=== PATIENT | female | born 1995 | race African-American/Black ===

== ENCOUNTER 2019-02-16 09:24 | Emergency (ER) | payer OTHER ==
[~2019-02-16] VITALS: Ht 172.7 cm; Wt 80.0 kg
[2019-02-16] MEDS ORDERED: ACETAMINOPHEN 325MG TABLET PO STA (10:26)
[2019-02-16] MEDS ORDERED: SODIUM CHLORIDE 0.9% 1,000 ML IV ONE (10:26)
[2019-02-16 11:04] LABS: BASOPHILS % 0.7 % (0.0-2.0); EOSINOPHILS % 1.5 % (0.0-5.0); HEMATOCRIT. 33.7 % (36.0-48.0); HEMOGLOBIN. 11.4 g/dL (12.0-16.0); LYMPHOCYTES % 18.5 % (20.0-50.0); MEAN CORPUSCULAR HEMOGLOBIN 30.9 pg (28.0-32.0); MEAN CORPUSCULAR VOLUME 91.8 fL (81.0-99.0); MEAN PLATELET VOLUME 7.5 fl (7.4-10.4); MONOCYTES % 4.2 % (2.0-8.0); NEUTROPHILS % 75.1 % (40.0-76.0); PLATELET 256 x1000/uL (130-400); RED BLOOD CELL COUNT 3.68 mill/uL (4.2-5.4); RED CELL DISTRIBUTION WIDTH 13.6 % (11.6-14.6)
[2019-02-16 11:12] LABS: CHLORIDE 105 mEq/L (98-107)
[2019-02-16 11:38] LABS: B-HCG QUANTITATIVE 18918 mIU/mL (<3)
[2019-02-16 13:30] LABS: CLARITY URINE CLEAR (CLEAR); COLOR URINE YELLOW (YELLOW); KETONES URINE NEGATIVE (NEGATIVE); LEUKOCYTE ESTERASE URINE NEGATIVE (NEGATIVE); NITRITE URINE NEGATIVE (NEGATIVE); OCCULT BLOOD URINE NEGATIVE (NEGATIVE); PROTEIN URINE NEGATIVE (NEGATIVE); SPECIFIC GRAVITY URINE 1.012 (1.005-1.030); UROBILINOGEN URINE 0.2 E.U./dL (0.2-1.0)
[2019-02-16 14:01] VITALS: BP 125/69
== END 2019-02-16 14:28 | disposition home or self-care (01) ==
LOC: EDBD 09:24 → ER 09:24
DX: O26.892 Other specified pregnancy related conditions, second trimester (principal); J45.909 Unspecified asthma, uncomplicated; R10.30 Lower abdominal pain, unspecified; Z3A.16 16 weeks gestation of pregnancy
CPT/HCPCS: 36415; 76805; 80053; 81003; 81025; 84702; 85025; 86850; 86900; 86901; 99284; J7030

== ENCOUNTER 2019-05-31 14:54 | Observation (INO) | payer OTHER ==
[~2019-05-31] VITALS: Ht 172.7 cm; Wt 99.0 kg
[2019-05-31] MEDS ORDERED: ACETAMINOPHEN 325MG TABLET PO ONE (15:45)
[2019-05-31] MEDS ORDERED: LABETALOL HCL 100MG TABLET PO ONE (15:45)
[2019-05-31 16:06] LABS: BASOPHILS % 0.3 % (0.0-2.0); EOSINOPHILS % 1.5 % (0.0-5.0); HEMATOCRIT. 35.9 % (36.0-48.0); HEMOGLOBIN. 12.2 g/dL (12.0-16.0); LYMPHOCYTES % 19.8 % (20.0-50.0); MEAN CORPUSCULAR HEMOGLOBIN 30.5 pg (28.0-32.0); MEAN CORPUSCULAR VOLUME 90.1 fL (81.0-99.0); MEAN PLATELET VOLUME 7.9 fl (7.4-10.4); MONOCYTES % 5.7 % (2.0-8.0); NEUTROPHILS % 72.7 % (40.0-76.0); PLATELET 272 x1000/uL (130-400); RED BLOOD CELL COUNT 3.99 mill/uL (4.2-5.4); RED CELL DISTRIBUTION WIDTH 12.9 % (11.6-14.6)
[2019-05-31 16:08] LABS: INR 0.9; PROTHROMBIN TIME 9.1 sec (9.6-11.0)
[2019-05-31 16:10] LABS: CLARITY URINE CLEAR (CLEAR); COLOR URINE YELLOW (YELLOW); KETONES URINE NEGATIVE (NEGATIVE); LEUKOCYTE ESTERASE URINE NEGATIVE (NEGATIVE); NITRITE URINE NEGATIVE (NEGATIVE); OCCULT BLOOD URINE NEGATIVE (NEGATIVE); PH URINE 5.5 (4.5-8.0); PROTEIN URINE NEGATIVE (NEGATIVE); SPECIFIC GRAVITY URINE 1.013 (1.005-1.030); UROBILINOGEN URINE 0.2 E.U./dL (0.2-1.0)
[2019-05-31 17:03] LABS: CHLORIDE 107 mEq/L (98-107)
[2019-05-31 17:27] LABS: B-HCG QUANTITATIVE 13446 mIU/mL (<3)
[2019-05-31 18:05] VITALS: BP 115/62
[2019-05-31] MEDS ORDERED: PNV1TABL50 PO (21:09)
== END 2019-05-31 21:15 | disposition home or self-care (01) ==
LOC: ER 14:54 → 8 EST LDRP 18:55
PROVIDERS: ADMIT Obstetrics & Gynecology; ATTEND Obstetrics & Gynecology
DX: O13.3 Gestational [pregnancy-induced] hypertension without significant proteinuria, third trimester (principal); O99.513 Diseases of the respiratory system complicating pregnancy, third trimester; J45.909 Unspecified asthma, uncomplicated; O26.893 Other specified pregnancy related conditions, third trimester; R51 Headache; Z3A.31 31 weeks gestation of pregnancy
CPT/HCPCS: 36415; 76805; 76815; 76818; 80053; 81003; 84550; 84702; 85025; 85384; 85610; 86850; 86900; 86901; 99281; G0378; 99284

== ENCOUNTER 2019-08-01 12:23 | Inpatient (IN) | payer OTHER ==
[~2019-08-01] VITALS: Ht 172.7 cm; Wt 109.3 kg
[~2019-08-01 12:23] MED LIST: PNV1TABL50 PO
[2019-08-01 14:04] LABS: BASOPHILS % 0.5 % (0.0-2.0); EOSINOPHILS % 1.2 % (0.0-5.0); HEMATOCRIT. 38.4 % (36.0-48.0); HEMOGLOBIN. 13.2 g/dL (12.0-16.0); LYMPHOCYTES % 19.9 % (20.0-50.0); MEAN CORPUSCULAR HEMOGLOBIN 31.5 pg (28.0-32.0); MEAN CORPUSCULAR VOLUME 91.7 fL (81.0-99.0); MEAN PLATELET VOLUME 9.3 fl (7.4-10.4); MONOCYTES % 5.5 % (2.0-8.0); NEUTROPHILS % 72.9 % (40.0-76.0); PLATELET 256 x1000/uL (130-400); RED BLOOD CELL COUNT 4.19 mill/uL (4.2-5.4); RED CELL DISTRIBUTION WIDTH 14.3 % (11.6-14.6)
[2019-08-01 14:05] LABS: CLARITY URINE CLEAR (CLEAR); COLOR URINE YELLOW (YELLOW); KETONES URINE NEGATIVE (NEGATIVE); LEUKOCYTE ESTERASE URINE NEGATIVE (NEGATIVE); NITRITE URINE NEGATIVE (NEGATIVE); OCCULT BLOOD URINE NEGATIVE (NEGATIVE); PH URINE 5.5 (4.5-8.0); PROTEIN URINE TRACE (NEGATIVE); SPECIFIC GRAVITY URINE 1.012 (1.005-1.030); UROBILINOGEN URINE 0.2 E.U./dL (0.2-1.0)
[2019-08-01 14:13] LABS: CHLORIDE 108 mEq/L (98-107)
[2019-08-01 14:40] LABS: D-DIMER 1.21 mg/L FEU (<0.50); INR 0.9; PARTIAL THROMBOPLASTIN TIME 25.5 sec (23.4-31.0); PROTHROMBIN TIME 9.2 sec (9.6-11.0)
[2019-08-01] MEDS ORDERED: LACTATED RINGERS 1,000 ML IV SCH (15:37)
[2019-08-01] MEDS ORDERED: BUTORPHANOL TARTRATE 2 MG/ML VIAL IV PRN (15:45)
[2019-08-01] MEDS ORDERED: METHYLERGONOVINE MALEATE 0.2 MG/ML IM PRN (15:45)
[2019-08-01] MEDS ORDERED: LIDOCAINE HCL 1% 20ML VIAL (Pyxis) INJ INFIL PRN (15:45)
[2019-08-01] MEDS ORDERED: NALOXONE HCL 0.4 MG/ML 1ML VIAL IM PRN (15:45)
[2019-08-01] MEDS ORDERED: DEXT 5%/LR + PITOCIN 20UNITS/L 1,000 ML IV PRN (15:45)
[2019-08-01] MEDS ORDERED: MISOPROSTOL 100MCG TABLET VG PRN ×2 (15:45)
[2019-08-01] MEDS ORDERED: LABETALOL HCL 5MG/ML VIAL 20ML IV PRN ×4 (16:45→18:00)
[2019-08-01] MEDS ORDERED: HYDRALAZINE 20MG/ML VIAL IV PRN (16:45)
[2019-08-01] MEDS ORDERED: DINOPROSTONE 10MG VAGINAL INSERT VG NR (18:00)
[2019-08-01 19:12] LABS: *AMPHETAMINES SCREEN URINE NEGATIVE (NEGATIVE); *BARBITURATES SCREEN URINE NEGATIVE (NEGATIVE); *BENZODIAZEPINES SCREEN URINE NEGATIVE (NEGATIVE); *COCAINE SCREEN URINE NEGATIVE (NEGATIVE); METHADONE URINE SCREEN NEGATIVE (NEGATIVE)
[2019-08-01 19:13] LABS: CANNABINOID URINE SCREEN NEGATIVE (NEGATIVE); OPIATES URINE SCREEN NEGATIVE (NEGATIVE); PHENCYCLIDINE URINE SCREEN NEGATIVE (NEGATIVE)
[2019-08-01 19:43] LABS: HEPATITIS B SURFACE ANTIGEN NEGATIVE
[2019-08-02] MEDS ORDERED: CITRIC ACID/SODIUM CITRATE SOLN 30ML UDC PO SCH (01:30)
[2019-08-02] MEDS ORDERED: FENTANYL CITRATE/PF 50MCG/ML 2ML VIAL ONE (01:45)
[2019-08-02] MEDS ORDERED: MORPHINE SULFATE/PF 1MG/ML 10ML AMP ONE (01:45)
[2019-08-02] MEDS ORDERED: PHENYLEPHRINE HCL 10 MG/ML 1ML (IV VIAL) IV ONE (01:46)
[2019-08-02] MEDS ORDERED: ONDANSETRON HCL 4MG/2ML INJ ONE (01:46)
[2019-08-02] MEDS ORDERED: METOCLOPRAMIDE HCL 10MG/2ML VIAL ONE (01:46)
[2019-08-02] MEDS ORDERED: OXYTOCIN 10 UNITS/ML 1ML ONE ×2 (01:46→03:00)
[2019-08-02] MEDS ORDERED: EPHEDRINE SULFATE 50MG/ML VIAL ONE (01:46)
[2019-08-02] MEDS ORDERED: CEFAZOLIN SODIUM 1000MG/VIAL ONE (01:46)
[2019-08-02] MEDS ORDERED: GLYCOPYRROLATE 0.2 MG/ML 2ML VIAL ONE (01:46)
[2019-08-02] MEDS ORDERED: SODIUM CHLORIDE 0.9% 10ML VIAL ONE (01:48)
[2019-08-02 03:28] LABS: BG FRACTION INSPIRED OXYGEN 21; BG HCO3 ACT 20.5 mmol/L (22.0-26.0); BG PCO2 53.9 mmHg (35.0-45.0); BG PH 7.198 (7.350-7.450); BG PO2 < 30.3 mmHg (75.0-100.0); BG SAMPLE SITE CORD; BG VENT MODE ROOM AIR
[2019-08-02 03:29] LABS: BG BASE EXCESS -5.7 mmol/L (-2.0-2.0); BG FRACTION INSPIRED OXYGEN 21; BG HCO3 ACT 25.7 mmol/L (22.0-26.0); BG PCO2 80.3 mmHg (35.0-45.0); BG PH 7.123 (7.350-7.450); BG SAMPLE SITE CORD; BG VENT MODE ROOM AIR
[2019-08-02] MEDS ORDERED: DIPHENHYDRAMINE 25MG CAPSULE PO PRN (03:30)
[2019-08-02] MEDS ORDERED: ONDANSETRON HCL 4MG/2ML INJ IV PRN (03:30)
[2019-08-02] MEDS ORDERED: IBUPROFEN 400MG TABLET PO PRN (03:30)
[2019-08-02] MEDS ORDERED: BISACODYL 10MG SUPP PR PRN (03:30)
[2019-08-02] MEDS ORDERED: KETOROLAC 30MG/ML VIAL IV PRN (03:30)
[2019-08-02] MEDS ORDERED: HYDROCODONE/ACETAMINOPHEN 5/325MG TABLET PO PRN (03:30)
[2019-08-02] MEDS ORDERED: LANOLIN OINT 7GM TUBE TOP PRN (03:30)
[2019-08-02] MEDS ORDERED: BUTORPHANOL TARTRATE 2 MG/ML VIAL IV PRN (03:45)
[2019-08-02] MEDS ORDERED: DIPHENHYDRAMINE 50MG/ML VIAL IV PRN (03:45)
[2019-08-02] MEDS ORDERED: NALOXONE HCL 0.4 MG/ML 1ML VIAL IV PRN (03:45)
[2019-08-02] MEDS ORDERED: LABETALOL HCL 5MG/ML VIAL 20ML IV PRN ×3 (05:15)
[2019-08-02] MEDS: LABETALOL HCL 5MG/ML VIAL 20ML IV PRN ×2 (05:39→06:41)
[2019-08-02] MEDS ORDERED: TETANUS, DIPHTHERIA, PERTUSSIS VAC/PF 0.5ML (>7YR OLD) IM ONE (06:00)
[2019-08-02] MEDS: MAGNESIUM 20 G PREMIX (L & D) 500 ML IV SCH ×2 (07:40→17:55)
[2019-08-02] MEDS: DEXT 5%/LR + PITOCIN 20UNITS/L 1,000 ML IV SCH ×2 (08:04→22:27)
[2019-08-02 08:09] LABS: BASOPHILS % 0.2 % (0.0-2.0); EOSINOPHILS % 0.2 % (0.0-5.0); HEMATOCRIT. 38.3 % (36.0-48.0); LYMPHOCYTES % 9.9 % (20.0-50.0); MEAN CORPUSCULAR HEMOGLOBIN 31.2 pg (28.0-32.0); MEAN CORPUSCULAR VOLUME 91.9 fL (81.0-99.0); MEAN PLATELET VOLUME 8.8 fl (7.4-10.4); MONOCYTES % 5.3 % (2.0-8.0); NEUTROPHILS % 84.4 % (40.0-76.0); PLATELET 251 x1000/uL (130-400); RED BLOOD CELL COUNT 4.17 mill/uL (4.2-5.4); RED CELL DISTRIBUTION WIDTH 14.3 % (11.6-14.6)
[2019-08-02 08:10] LABS: CLARITY URINE CLEAR (CLEAR); COLOR URINE YELLOW (YELLOW); KETONES URINE NEGATIVE (NEGATIVE); LEUKOCYTE ESTERASE URINE NEGATIVE (NEGATIVE); NITRITE URINE NEGATIVE (NEGATIVE); OCCULT BLOOD URINE 2+ (NEGATIVE); PH URINE 6.5 (4.5-8.0); PROTEIN URINE 1+ (NEGATIVE); SPECIFIC GRAVITY URINE 1.019 (1.005-1.030); UROBILINOGEN URINE 0.2 E.U./dL (0.2-1.0)
[2019-08-02 08:16] LABS: CHLORIDE 107 mEq/L (98-107)
[2019-08-02 08:25] LABS: D-DIMER 3.14 mg/L FEU (<0.50); INR 0.9; PARTIAL THROMBOPLASTIN TIME 24.3 sec (23.4-31.0); PROTHROMBIN TIME 9.1 sec (9.6-11.0)
[2019-08-03] MEDS: MAGNESIUM 20 G PREMIX (L & D) 500 ML IV SCH (04:26)
[2019-08-03 07:10] LABS: BASOPHILS % 0.7 % (0.0-2.0); EOSINOPHILS % 1.4 % (0.0-5.0); HEMATOCRIT. 38.8 % (36.0-48.0); HEMOGLOBIN. 13.1 g/dL (12.0-16.0); LYMPHOCYTES % 14.5 % (20.0-50.0); MEAN CORPUSCULAR HEMOGLOBIN 30.9 pg (28.0-32.0); MEAN CORPUSCULAR VOLUME 91.5 fL (81.0-99.0); MEAN PLATELET VOLUME 8.7 fl (7.4-10.4); NEUTROPHILS % 77.4 % (40.0-76.0); PLATELET 245 x1000/uL (130-400); RED BLOOD CELL COUNT 4.23 mill/uL (4.2-5.4); RED CELL DISTRIBUTION WIDTH 14.6 % (11.6-14.6)
[2019-08-03 08:05] VITALS: BP 137/80
[2019-08-03] MEDS: SIMETHICONE 80MG TABLET CHEW PO SCH ×4 (08:59→20:33)
[2019-08-03] MEDS: PRENATAL VIT/FE FUMARATE/FA TABLET PO SCH (09:00)
[2019-08-03] MEDS: FERROUS SULFATE 325MG TABLET PO SCH ×3 (09:00→17:35)
[2019-08-03] MEDS: IBUPROFEN 800MG TABLET PO PRN ×2 (09:01→21:46)
[2019-08-03 15:45] VITALS: BP 119/80
[2019-08-03] MEDS: DOCUSATE SODIUM 100MG CAPSULE PO SCH (20:32)
[2019-08-03 22:00] VITALS: BP 132/71
[2019-08-04] VITALS (7 sets, daily range): BP systolic 129–153; BP diastolic 62–95
[2019-08-04 07:34] LABS: BASOPHILS % 0.5 % (0.0-2.0); EOSINOPHILS % 1.4 % (0.0-5.0); HEMATOCRIT. 33.7 % (36.0-48.0); HEMOGLOBIN. 11.3 g/dL (12.0-16.0); LYMPHOCYTES % 22.2 % (20.0-50.0); MEAN CORPUSCULAR HEMOGLOBIN 31.1 pg (28.0-32.0); MEAN CORPUSCULAR VOLUME 93.2 fL (81.0-99.0); MEAN PLATELET VOLUME 8.6 fl (7.4-10.4); MONOCYTES % 7.3 % (2.0-8.0); NEUTROPHILS % 68.6 % (40.0-76.0); PLATELET 213 x1000/uL (130-400); RED BLOOD CELL COUNT 3.62 mill/uL (4.2-5.4); RED CELL DISTRIBUTION WIDTH 14.1 % (11.6-14.6)
[2019-08-04] MEDS: FERROUS SULFATE 325MG TABLET PO SCH ×3 (08:15→17:55)
[2019-08-04] MEDS: SIMETHICONE 80MG TABLET CHEW PO SCH ×4 (08:15→20:35)
[2019-08-04] MEDS: PRENATAL VIT/FE FUMARATE/FA TABLET PO SCH (12:42)
[2019-08-04] MEDS: LABETALOL HCL 200MG TABLET PO SCH (17:56)
[2019-08-04] MEDS: DOCUSATE SODIUM 100MG CAPSULE PO SCH (20:35)
[2019-08-05 04:00] VITALS: BP 129/76
[2019-08-05 07:30] VITALS: BP 138/73
[2019-08-05 11:00] VITALS: BP 144/92
[2019-08-05] MEDS: FERROUS SULFATE 325MG TABLET PO SCH (11:01)
[2019-08-05] MEDS: SIMETHICONE 80MG TABLET CHEW PO SCH ×2 (11:01→21:23)
[2019-08-05] MEDS: PRENATAL VIT/FE FUMARATE/FA TABLET PO SCH (11:01)
[2019-08-05] MEDS: LABETALOL HCL 200MG TABLET PO SCH ×2 (11:02→22:55)
[2019-08-05] MEDS: IBUPROFEN 800MG TABLET PO PRN ×2 (11:07→15:14)
[2019-08-05 14:45] VITALS: BP 140/81
[2019-08-05 19:00] VITALS: BP 135/91
[2019-08-05] MEDS: DOCUSATE SODIUM 100MG CAPSULE PO SCH (21:24)
[2019-08-06 05:00] VITALS: BP 148/92
[2019-08-06 07:15] VITALS: BP 130/78
[2019-08-06] MEDS: PRENATAL VIT/FE FUMARATE/FA TABLET PO SCH (08:27)
[2019-08-06] MEDS: IBUPROFEN 800MG TABLET PO PRN (08:27)
[2019-08-06] MEDS: FERROUS SULFATE 325MG TABLET PO SCH (08:27)
== END 2019-08-06 10:55 | disposition home or self-care (01) | DRG 540 ==
LOC: OBSVTOIN 12:23 → 8 EST LDRP 12:23 → 8EST 08-03 08:10
PROVIDERS: ADMIT Obstetrics & Gynecology; ATTEND Obstetrics & Gynecology
PROC: 3E0P7VZ Introduction of Hormone into Female Reproductive, Via Natural or Artificial Opening (ICD-10-PCS; 2019-08-01)
PROC: 10D00Z1 Extraction of Products of Conception, Low, Open Approach (ICD-10-PCS; principal; 2019-08-02)
DX: O76 Abnormality in fetal heart rate and rhythm complicating labor and delivery (principal); O41.03X0 Oligohydramnios, third trimester, not applicable or unspecified; O99.03 Anemia complicating the puerperium; O32.2XX0 Maternal care for transverse and oblique lie, not applicable or unspecified; O98.52 Other viral diseases complicating childbirth; B06.9 Rubella without complication; O13.4 Gestational [pregnancy-induced] hypertension without significant proteinuria, complicating childbirth; Z37.0 Single live birth; Z3A.39 39 weeks gestation of pregnancy
CPT/HCPCS: 36415; 36600; 76815; 76818; 80305; 81003; 82805; 83735; 84550; 85379; 85384; 86592; 86703; 86762; 86850; 86900; 87340; 90715; 99281; G0378; J0690; J2274; J2370; J2405; J2590; J2765; J3010; J3475; J3490; A4315